=== PATIENT | male | born 1990 | race Caucasian/White ===

== ENCOUNTER 2018-08-30 11:44 | Emergency (ER) | payer OTHER ==
[2018-08-30] MEDS ORDERED: HYDROmorphONE/DILAUDID 1 MG/ML INJ ONE (11:53)
[2018-08-30] MEDS ORDERED: HYDROmorphONE/DILAUDID 1 MG/ML INJ IVP ONE (11:57)
--- NOTE | 2018-08-30 12:08 | EDPHY ---
General Time Seen by Provider: 08/30/18 11:44 Narrative: CLINICAL IMPRESSION: Right patellar dislocation ASSESSMENT/PLAN: 27-year-old otherwise healthy male presents to the emergency department after he dislocated his right patella when he planted his foot and twisted the knee. Patient has not dislocated the patella in the past. He arrives with a clinical diagnosis of a right patellar dislocation that was reduced by myself. Post reduction x-rays confirm anatomic alignment of the patella. Distal neurovascular exam intact. No proximal or distal joint injury. No open wounds. Patient was placed in a knee immobilizer and referred to Orthopedics. Warning signs return to ED sooner outlined and discharge. DIFFERENTIAL DX: Differential includes but not limited to acute fracture, strain/sprain, joint dislocation, soft tissue contusion ED PROCEDURES: Procedure: Splint placement. A knee immobilizer splint was applied to right knee by cable splicing technician, supervised by myself. After application of the splint I returned and re-examined the patient. The splint was adequately immobilizing the joint and distal to the splint the patient's circulation and sensation was intact. ED COURSE: Procedure: Dislocation reduction. The right patella was reduced in the usual fashion with leg extension and gentle lateral pressure without complications. Post reduction the patient's neurovascular exam is normal. Post reduction x-ray demonstrates reduction of the joint to the anatomic position. The procedure was performed by myself. Knee immobilizer placed for comfort Procedure: Splint placement. A right leg knee immobilizer splint was applied. After application of the splint I returned and re-examined the patient. The splint was adequately immobilizing the joint and distal to the splint the patient's circulation and sensation was intact. 12:45 p.m.: Post reduction x-rays reviewed by myself show normal alignment of the patella, no underlying fracture. CHIEF COMPLAINT: Right patellar dislocation HPI: 27-year-old male presents to the emergency department by ambulance after he dislocated his right patella after he turned wrong. Patient was installing solar panels. He reports no prior patellar injury. No fall or trauma. No loss of sensation to lower leg foot or toes. No other injuries. PAST MEDICAL HISTORY: None reported Pertinent Past Surgical History: None reported Social History: Otherwise healthy REVIEW OF SYSTEMS: All other systems negative Constitutional: No fever, no chills Musculoskeletal: No deformity, + joint pain Skin: No rashes, color change or open wounds. Neurological: No sensory loss or weakness. PHYSICAL EXAM: General Appearance: Alert, oriented, appropriate for age, cooperative, NAD, well hydrated, non-toxic appearing, VSS, no hypoxia. Neurological: Alert and oriented x 3, normal sensation of extremities Skin: Warm, dry, no rashes, no nodules on palpation. Musculoskeletal: Obvious lateral dislocation of the right patella. No reproducible pain to the femoral condyles, proximal tibia, lower leg, hip, ankle or foot. Distal neurovascular exam intact. No open wounds. MEDICAL DECISION MAKING: Patient was seen independently. Secondary supervising physician at time of evaluation was Dr. Chandra . Diagnosis: Right patellar dislocation. New, requires workup Summary: See assessment and plan for summary of ED visit Independent visualization of images, tracing, or specimens yes. Patient Progress: Improved, stable for discharge. - History Smoking Status: Never smoked - Objective Vital Signs: Initial Vital Signs Temperature (C) 37 C 08/30/18 11:45 Heart Rate 62 08/30/18 11:45 Respiratory Rate 16 08/30/18 11:45 Blood Pressure 148/88 H 08/30/18 11:45 O2 Sat (%) 95 08/30/18 11:45 O2 Delivery Mode Room Air Allergies/Adverse Reactions: No Known Allergies Allergy (Unverified 08/30/18 12:01) Home Medications: Medication Instructions Recorded Adderall 10 MG (*) 08/30/18 Medications Given: Discontinued Medications Hydromorphone HCl (Dilaudid) 1 mg IVP EDNOW ONE Stop: 08/30/18 11:58 Last Admin: 08/30/18 11:59 Dose: 1 mg Departure - Departure Disposition: Home, Routine, Self-Care Clinical Impression: Patellar dislocation Qualifiers: Encounter type: initial encounter Laterality: right Qualified Code(s): S83.004A - Unspecified dislocation of right patella, initial encounter Condition: Good Instructions: Knee Pain (ED) Additional Instructions: DISCHARGE INSTRUCTIONS FROM YOUR DOCTOR Thank you for visiting our emergency department today. You were treated by a physician public aid eligibility assistant today and your case was reviewed with our ED Attending physician. Please keep in mind that discharge from the emergency department does not mean that there is nothing wrong - it simply means that we have not identified an emergency condition that requires further evaluation or treatment in the hospital. You should always plan to follow up with primary care for re- evaluation of your condition in the next 2-3 days. If you have been referred to a specialist, please call as soon as possible (today or tomorrow) to schedule your follow up appointment at the appropriate time. YOU HAD A RIGHT DISLOCATED PATELLA THAT WAS REDUCED IN THE ER. POST REDUCTION FILMS ARE NORMAL. A KNEE IMMOBILIZER SPLIN WAS PLACED. PLEASE FOLLOW-UP WITH ORTHOPEDICS IN THE NEXT 1-2 DAYS. PLEASE CALL FOR AN APPOINTMENT. A REFERRAL WAS GIVEN. PLEASE RETURN TO THE EMERGENCY DEPARTMENT FOR WORSENING KNEE PAIN, INABILITY TO WALK, FEVER OR ANY OTHER CONCERN. People present with illnesses and injuries in different ways, and it is always possible that we have missed something. You may always return for re-evaluation if symptoms worsen or if they are not improving or if you develop new/different symptoms. Again, thank you for choosing our emergency department. We hope that you feel better. Referrals: NONE *PRIMARY CARE P,. [Primary Care Provider] - 2-3 days, call for appt. Yun Marquez MD [Medical Doctor] - 2-3 days, if not improved
[2018-08-30 13:02] VITALS: BP 123/65
== END 2018-08-30 13:02 | disposition home or self-care (01) ==
PROC: 0QSDXZZ Reposition Right Patella, External Approach (ICD-10-PCS; principal; 2018-08-30)
DX: S83.004A Unspecified dislocation of right patella, initial encounter (principal); W18.49XA Other slipping, tripping and stumbling without falling, initial encounter; Y93.H9 Activity, other involving exterior property and land maintenance, building and construction; Y92.008 Other place in unspecified non-institutional (private) residence as the place of occurrence of the external cause
CPT/HCPCS: 96374; J1170; L1830